=== PATIENT | female | born 1970 | race African-American/Black ===

== ENCOUNTER 2017-01-10 07:29 | Day surgery (SDC) | payer OTHER, MEDICAID ==
--- NOTE | 2017-01-04 13:10 | HP ---
PREOPERATIVE HISTORY AND PHYSICAL: DATE OF SURGERY/ADMISSION: 01/10/17 DATE OF OFFICE VISIT/ENCOUNTER: 01/02/17 ATTENDING SURGEON: Bina Branham MD PROCEDURE: Left elbow ulnar nerve decompression. CHIEF COMPLAINT: Left arm pain and numbness. HISTORY OF PRESENT ILLNESS: This is a 46-year-old female who complains of numbness in her left hand for about 4 years. She recently had a nerve conduction study done by Dr. Hinojosa, which shows an ulnar neuropathy with compression of the ulnar nerve at the elbow. She does not recall any injury and she has not had any treatment for this. She reports her fingers are numb all of the time. Her thumb is not involved. She was recently diagnosed with COPD and is being treated for that. After evaluation and recommendations by Dr. Branham, she has consented to proceed with surgical intervention for this problem in the form of left elbow ulnar nerve decompression. PAST MEDICAL HISTORY: Significant for: 1. COPD. 2. Anxiety/panic attacks. 3. Asthma. 4. Back pain. PAST SURGICAL HISTORY: 1. Hysterectomy. 2. Breast surgery secondary to infection. 3. Right ankle surgery. CURRENT MEDICATIONS: 1. Albuterol sulfate. 2. Clonazepam 2 tabs b.i.d. 3. Cyclobenzaprine HCL 10 mg t.i.d. p.r.n. spasm. 4. Fluticasone propionate 2 sprays each nostril daily p.r.n. 5. Ibuprofen 600 mg t.i.d. p.r.n. 6. Ipratropium bromide 2 sprays each nostril 4 times a day p.r.n. 7. Naprosyn 500 mg 1 tab b.i.d. p.r.n. 8. Ventolin HFA inhaler 2 puffs 4 times a day p.r.n. ALLERGIES: ERYTHROMYCIN, KEFLEX, LATEX, TAPE, and ZOLOFT. FAMILY MEDICAL HISTORY: Noncontributory. SOCIAL HISTORY: The patient is currently unemployed. She typically works in daycare. She is a smoker. Reports smoking less than a half a pack per day for the past 15 years. She denies recreational drug use, although she admits to smoking pot regularly in the past and she does admit to alcohol use on occasion. REVIEW OF SYSTEMS: General: Negative for fevers, chills, or night sweats. No known anesthesia problems in the past. HEENT: Negative for headache, lightheadedness, or syncopal episodes. Integumentary: Negative for abrasions, lesions, or open wounds. Cardiothoracic: Negative for chest pain, palpitations , or edema. Negative for hypertension. Pulmonary: Positive for COPD. Positive for asthma. Positive for shortness of breath with exertion. GI: Negative for nausea, vomiting, diarrhea, constipation, or GERD. : Negative for nocturia, urinary frequency, urgency, history of UTIs, or kidney problems. Musculoskeletal: Positive for current complaint. Positive for intermittent back pain. Neurological: Positive for panic attack/anxiety. Negative for paresthesias, numbness, history of seizure, stroke, or epilepsy. Endocrine: Positive for goiter. Negative for diabetes. Hematologic: Negative for easy bruising, anemia, excessive bleeding, or history of DVT. Infectious Disease: Negative for history of MRSA, hepatitis C, or HIV. PHYSICAL EXAMINATION GENERAL: Well-developed, well-nourished 46-year-old female in no acute distress. VITAL SIGNS: Height 5 feet 9 inches, weight 161 pounds, pulse rate 88, blood pressure 108/58. HEENT: Normocephalic, atraumatic. Pupils are equal, round, and reactive to light and accommodation. Extraocular movements are intact. Throat is clear. NECK: Supple. No palpable lymph nodes. PULMONARY: Lungs are clear to auscultation bilaterally. No wheezes, rales, or rhonchi. CARDIOTHORACIC: Regular rate and rhythm. S1, S2. No murmurs, rubs, or gallops. No edema. ABDOMEN: Positive bowel sounds, soft, nontender. NEUROLOGICAL: Alert and oriented x3. Cranial nerves II through XII are intact. Sensation is intact to light touch. MUSCULOSKELETAL: On exam of the left upper extremity, there is no interosseous wasting, but there is marked weakness with finger abduction compared to the right hand. She has decreased sensation in the ulnar nerve distribution compared to the right upper extremity. She can fully flex and extend her fingers. She has normal wrist and elbow motion and a negative Tinel sign of the ulnar nerve at the elbow, but is reporting that she cannot feel anything with this test. Skin is intact. IMAGING STUDIES: Nerve conduction study done by Dr. Hinojosa approximately a month ago shows ulnar nerve compression at the left elbow. IMPRESSION: Left ulnar neuropathy at the elbow. PLAN: The patient is scheduled to undergo a left ulnar nerve decompression at the elbow with Dr. Branham on 01/10/17. She will return to the office in 10 to 14 days postop for followup and suture removal. A prescription for [place] was e- scribed to the patient's pharmacy for postoperative pain management. GAYLA VELASQUEZ [id number]/CPS #: [id number] SIA
[~2017-01-10 07:29] MED LIST: Buffered Lidocaine 1% SYR 3ML* 3 ML/SYR SYRINGE INTRADERM ONE
[2017-01-10] MEDS ORDERED: Clindamycin 900 MG IVPREMIX(* 900 MG/50 ML SDV IV ONE (07:39)
[2017-01-10] MEDS ORDERED: Midazolam* 1 MG/ML 2 ML VIAL (2 MG) ONE (08:56)
[2017-01-10] MEDS ORDERED: fentaNYL* 50 MCG/ML 2 ML VIAL (100 MCG VIAL) ONE (08:56)
[2017-01-10] MEDS ORDERED: Bupivacaine 0.5% SDV PF* 30 ML VIAL ONE (09:44)
[2017-01-10] MEDS ORDERED: Propofol* 10 MG/ML 20 ML BTL IV PUSH ONE (09:52)
[2017-01-10] MEDS ORDERED: HYDROcodone/ACETAMIN 5-325 MG* 1 TAB ONE (10:50)
[2017-01-10 11:22] VITALS: BP 116/86
--- NOTE | 2017-01-11 02:59 | OP ---
DATE OF OPERATION: 01/10/17 - [facility] DATE OF : 72 SURGEON: Bina Branham MD STEAM CONDITIONER OPERATOR: GAYLA Duran ANESTHESIOLOGIST: Charlie Tamayo MD ANESTHESIA: Local MAC. PRE-OP DIAGNOSIS: Ulnar nerve compression of the left elbow. POST-OP DIAGNOSIS: Ulnar nerve compression of the left elbow. OPERATIVE PROCEDURE: Left ulnar nerve decompression at the elbow. ESTIMATED BLOOD LOSS: Zero. TOURNIQUET TIME: About 25 minutes. INDICATIONS FOR PROCEDURE: Jaye is a 46-year-old female with numbness and tingling in the ulnar nerve distribution of her left hand. Nerve conduction study shows ulnar neuropathy at the elbow. She presents for ulnar nerve decompression at the left elbow. DESCRIPTION OF PROCEDURE: The patient was brought to the operating room, was given a sedation anesthetic and local infiltration of 10 cc of 1% plain lidocaine on the medial aspect of her left elbow. Skin of her left upper extremity was prepped and draped in the usual sterile fashion. The upper extremity was exsanguinated and the tourniquet elevated to 250 mmHg. A curvilinear incision was made centered between the medial epicondyle and the tip of the olecranon process. We dissected through the subcutaneous tissue down to the ulnar nerve proximal to the cubital tunnel. It was carefully dissected out proximally through the cubital tunnel and distally into the FCU muscle. The superficial and deep fascia of the FCU muscle was divided. The most compression was at the cubital tunnel. Proximal to that, the nerve was bulbus. The medial intermuscular septum was then divided because it had a very sharp edge. The wound was copiously irrigated with saline. The subcutaneous tissue was closed with 2-0 Polysorb and the skin with skin enzo. The wound was dressed with Xeroform, 4x4, Webril, and an Jayjay wrap. The patient tolerated the procedure well, was brought to the recovery room in good condition. [id number]/[facility] #: [id number] [facility] CENT[facility]ira
== END 2017-01-10 11:45 | disposition home or self-care (01) ==
LOC: OREAST 07:29
PROVIDERS: ATTEND Orthopaedic Surgery
DX: G56.22 Lesion of ulnar nerve, left upper limb (principal); R01.1 Cardiac murmur, unspecified; I25.2 Old myocardial infarction; J44.9 Chronic obstructive pulmonary disease, unspecified; F17.200 Nicotine dependence, unspecified, uncomplicated; Z85.3 Personal history of malignant neoplasm of breast
CPT/HCPCS: J2250; J2704; J3010

== ENCOUNTER 2017-06-06 09:15 | Emergency (ER) | payer OTHER ==
[2017-06-06] MEDS ORDERED: Ketorolac INJ* 30 MG/ML 1 ML VIAL IV ONE (10:17)
[2017-06-06] MEDS ORDERED: HYDROmorphone* 1 MG/ML 1 ML SYR IV ONE (10:17)
[2017-06-06] MEDS ORDERED: Ondansetron INJ* 2 MG/ML VIAL IV ONE (10:17)
[2017-06-06 11:07] LABS: Hematocrit 45 % (35-47); Hemoglobin 15.2 g/dl (12.0-16.0); Mean Corpuscular HGB Conc 34 g/dl (31-36); Mean Corpuscular Hemoglobin 33 pg (27-31); Mean Corpuscular Volume 97 fL (80-97); Mean Platelet Volume 8 um3 (7.4-10.4); Red Blood Count 4.65 10^6/ul (4.0-5.4); Red Cell Distribution Width 13 % (10.5-15); White Blood Count 6.9 10^3/ul (3.5-10.8)
[2017-06-06 11:22] LABS: Albumin 3.9 g/dL (3.2-5.2); BUN/Creatinine Ratio 15.2 (8-20); C Reactive Protein 1.81 mg/L (< 5.00); Calcium 9.6 mg/dL (8.6-10.3); EGFR African American 124.6 (>60); EGFR Non-African American 96.8 (>60); Globulin 3.4 g/dL (2-4); Potassium 3.6 mmol/L (3.5-5.0); Total Bilirubin 0.4 mg/dL (0.2-1.0); Total Protein 7.3 g/dL (6.4-8.9)
[2017-06-06 12:21] VITALS: BP 148/91
--- NOTE | 2017-06-06 15:07 | ED ---
I, Oh,Soohleola, scribed for Bill Moses MD on 06/06/17 at 1011 . Lower Extremity - HPI Summary HPI Summary: This 46 y/o female presents to ED for acute on chronic right hip pain since yesterday. PMHx includes Libral tear. Pt states that she has been following up with Sports medicine and had cortisone shot 4 days ago. Pt became concerned when pain persisted after the cortisone shot, and called Dr. Lizarraga yesterday. She decided to bring herself to ED today when she had trouble tolerating the pain. Ambulation and position makes pain worse. - History of Current Complaint Chief Complaint: EDGeneral Stated Complaint: HIP/CHEST PAIN Time Seen by Provider: 06/06/17 09:46 Hx Obtained From: Patient, Medical Records Mechanism Of Injury: Unknown Pain Intensity: 10 Pain Scale Used: 0-10 Numeric Timing: Constant Location: Is Discrete @ - right hip Character Of Pain: Dull Associated Signs And Symptoms: Positive: Negative Aggravating Factor(s): Standing, Ambulation, Movement Alleviating Factor(s): Rest - Allergies/Home Medications Allergies/Adverse Reactions: Allergies Allergy/AdvReac Type Severity Reaction Status Date / Time Latex Allergy Severe Rash Verified 05/09/17 12:48 Chlorine Allergy Mild Itching Verified 05/09/17 12:48 Cephalexin [From Keflex] Allergy Rash Verified 05/09/17 12:48 Erythromycin Allergy Hives Verified 05/09/17 12:48 Sertraline [From Zoloft] Allergy Itching Verified 05/09/17 12:48 PMH/Surg Hx/FS Hx/Imm Hx Endocrine/Hematology History: Reports: Hx Thyroid Disease - goiter Denies: Hx Diabetes, Hx Anemia Cardiovascular History: Reports: Hx Cardiac Arrest - age21, Hx Hypertension Denies: Hx Pacemaker/ICD Respiratory History: Reports: Hx Asthma - albuterol inhaler GI History: Reports: Hx Gastroesophageal Reflux Disease Denies: Other GI Disorders History: Denies: Hx Dialysis, Hx Kidney Infection, Hx Kidney Stones, Hx Renal Disease , Other Problems/Disorders Musculoskeletal History: Reports: Hx Arthritis - RIGHT ANKLE Sensory History: Reports: Hx Contacts or Glasses - GLASSES Denies: Hx Hearing Aid Opthamlomology History: Reports: Hx Contacts or Glasses - GLASSES Neurological History: Reports: Hx Headaches, Hx Migraine, Hx Seizures - until age 12, grew out of Psychiatric History: Reports: Hx Anxiety - meds, Hx Depression Denies: Hx Panic Disorder - Cancer History Cancer Type, Location and Year: ATYPICAL CELL - Hx Chemotherapy: No Hx Radiation Therapy: No - Surgical History Surgery Procedure, Year, and Place: HYSTERECTOMY 09/2012,. Right ankle repair, . BONE REMOVAL FROM NASAL SEPTUM. BREAST - Rt NIPPLE PARTIAL REMOVAL & Lt NIPPLE COMPLETE REMOVAL DUE TO ATYPICAL CELLS Hx Anesthesia Reactions: Yes - patient stated she " " on operating table, was brought back Infectious Disease History: No Infectious Disease History: Denies: Traveled Outside the [place] in Last 30 Days - Family History Known Family History: Positive: Other - Social History Alcohol Use: Weekly Hx Substance Use: Yes Substance Use Type: Reports: Marijuana Substance Use Comment - Amount & Last Used: couple times a week Hx Tobacco Use: Yes Smoking Status (MU): Heavy Every Day Tobacco Smoker Type: Cigarettes Review of Systems Negative: Fever Positive: Other - right hip pain All Other Systems Reviewed And Are Negative: Yes Physical Exam - Summary Physical Exam Summary: Well-appearing, moderate to severe pain distress Warm, dry, color reflects adequate perfusion. Injection site noted at right lateral hip, which appears clean. Nml head/face Nml eyes Nml ENT Supple, non-tender CTA, breath sound present RRR Abd soft, non-tender, Bowel sounds + Nml musculoskeletal. Due to pt's pain distress ROM is not examined. Nml neuro Nml psychiatric, affect/mood appropriate Triage Information Reviewed: Yes Vital Signs On Initial Exam: Initial Vitals Temp Pulse Resp BP Pulse Ox 98 F 90 15 168/117 100 06/06/17 09:27 06/06/17 09:27 06/06/17 09:27 06/06/17 09:27 06/06/17 09:27 Vital Signs Reviewed: Yes - [place] Coma Scale Coma Scale Total: 15 Diagnostics - Vital Signs Vital Signs Temp Pulse Resp BP Pulse Ox 06/06/17 09:27 98 F 90 15 168/117 100 - Laboratory Lab Results: Lab Results 06/06/17 06/06/17 Range/Units 10:56 10:56 WBC 6.9 (3.5-10.8) 10^3/ul RBC 4.65 (4.0-5.4) 10^6/ul Hgb 15.2 (12.0-16.0) g/dl Hct 45 (35-47) % MCV 97 (80-97) fL MCH 33 H (27-31) pg MCHC 34 (31-36) g/dl RDW 13 (10.5-15) % Plt Count 255 (150-450) 10^3/ul MPV 8 (7.4-10.4) um3 Neut % (Auto) 45.1 (38-83) % Lymph % (Auto) 45.4 (25-47) % [place] % (Auto) 7.8 (1-9) % Eos % (Auto) 0.8 (0-6) % Baso % (Auto) 0.9 (0-2) % Absolute Neuts (auto) 3.1 (1.5-7.7) 10^3/ul Absolute Lymphs (auto) 3.1 (1.0-4.8) 10^3/ul Absolute Monos (auto) 0.5 (0-0.8) 10^3/ul Absolute Eos (auto) 0.1 (0-0.6) 10^3/ul Absolute Basos (auto) 0.1 (0-0.2) 10^3/ul Absolute Nucleated RBC 0.02 10^3/ul Nucleated RBC % 0.3 Sodium 135 (133-145) mmol/L Potassium 3.6 (3.5-5.0) mmol/L Chloride 103 (101-111) mmol/L Carbon Dioxide 24 (22-32) mmol/L Anion Gap 8 (2-11) mmol/L BUN 10 (6-24) mg/dL Creatinine 0.66 (0.51-0.95) mg/dL Est GFR ( Amer) 124.6 (>60) Est GFR (Non-Af Amer) 96.8 (>60) BUN/Creatinine Ratio 15.2 (8-20) Glucose 92 (70-100) mg/dL Calcium 9.6 (8.6-10.3) mg/dL Total Bilirubin 0.40 (0.2-1.0) mg/dL AST 20 (13-39) U/L ALT 25 (7-52) U/L Alkaline Phosphatase 76 (34-104) U/L C-Reactive Protein 1.81 (< 5.00) mg/L Total Protein 7.3 (6.4-8.9) g/dL Albumin 3.9 (3.2-5.2) g/dL Globulin 3.4 (2-4) g/dL Albumin/Globulin Ratio 1.1 (1-3) Result Diagrams: 06/06/17 10:56 06/06/17 10:56 Lab Statement: Any lab studies that have been ordered have been reviewed, and results considered in the medical decision making process. - EKG 0950 Cardiac Rate: NL - 81 bpm EKG Rhythm: Sinus Rhythm Re-Evaluation - Re-Evaluation First Eval Re-Evaluation Time: 11:38 Comment: Pt is reevaluated after IV Toradol and Dilaudid. Lower Extremity Course/Dx - Course Course Of Treatment: Ms. Pruett has severe pain in her right hip about a week after getting an intraarticular injection. There was no evidence for infection and she was treated symptomatically to F/U with her orthopedist. - Diagnoses Provider Diagnoses: Right hip pain Discharge - Discharge Plan Condition: Stable Disposition: HOME Prescriptions: HYDROcodone/ACETAMIN 5-325 MG* [[place] 5-325 TAB*] 1 tab PO Q6H PRN #20 tab MDD 4 PRN Reason: Pain Patient Education Materials: Hydrocodone/Acetaminophen (By mouth), Hip Pain (ED ) Referrals: Melo Hayes MD [Primary Care Provider] - 2 Days The documentation as recorded by the Hector landry Soohyun accurately reflects the service I personally performed and the decisions made by me, Bill Moses MD.
== END 2017-06-06 12:20 | disposition home or self-care (01) ==
LOC: ED 09:15
DX: M25.551 Pain in right hip (principal); E04.9 Nontoxic goiter, unspecified; Z86.74 Personal history of sudden cardiac arrest; I10 Essential (primary) hypertension; K21.9 Gastro-esophageal reflux disease without esophagitis; F41.9 Anxiety disorder, unspecified; F17.210 Nicotine dependence, cigarettes, uncomplicated
CPT/HCPCS: 36415; 80053; 85025; 86140; 93005; 96374; 96375; 99282; J1170; J1885; J2405

== ENCOUNTER 2017-06-17 21:52 | Emergency (ER) | payer OTHER ==
[2017-06-17] MEDS ORDERED: Ketorolac INJ* 30 MG/ML 1 ML VIAL IV ONE (22:36)
[2017-06-17] MEDS ORDERED: NS 0.9% 1000 ML* 1,000 ML IV ONE (22:36)
[2017-06-17] MEDS ORDERED: Ondansetron INJ* 2 MG/ML VIAL IV ONE (22:36)
[2017-06-17] MEDS ORDERED: methylPREDNISolone 125 MG* 2 ML VIAL IV ONE (22:36)
[2017-06-17] MEDS ORDERED: Famotidine IV* 10 MG/ML 2 ML (20 mg) IV SLOW PU ONE (22:37)
[2017-06-17 23:33] LABS: Hematocrit 43 % (35-47); Hemoglobin 14.7 g/dl (12.0-16.0); Mean Corpuscular HGB Conc 34 g/dl (31-36); Mean Corpuscular Hemoglobin 32 pg (27-31); Mean Corpuscular Volume 96 fL (80-97); Mean Platelet Volume 8 um3 (7.4-10.4); Red Blood Count 4.52 10^6/ul (4.0-5.4); Red Cell Distribution Width 13 % (10.5-15); White Blood Count 5.1 10^3/ul (3.5-10.8)
[2017-06-17 23:44] LABS: Albumin 4.3 g/dL (3.2-5.2); BUN/Creatinine Ratio 13.5 (8-20); Calcium 9.3 mg/dL (8.6-10.3); EGFR African American 109.1 (>60); EGFR Non-African American 84.9 (>60); Globulin 3.3 g/dL (2-4); Potassium 3.7 mmol/L (3.5-5.0); Total Bilirubin 0.5 mg/dL (0.2-1.0); Total Protein 7.6 g/dL (6.4-8.9)
--- NOTE | 2017-06-18 01:05 | ED ---
I, Oh,Solidya, scribed for Birgit Hughes MD on 06/17/17 at 2238 . Bite Injury/Animal - HPI Summary HPI Summary: THis 46 y/o female presents to ED for insect bite on left neck about 1.5 minutes ago. Pt states that she "heard some weird noise". Positive chills, "searing burning pain", and chest tightness. Pt is unsure what she was bitten by. PMHx includes HTN. Epipen was administered SURFACE MINER. Pt is smoker, MJ user, and drinker. - History of Current Complaint Chief Complaint: EDAllergicReaction Stated Complaint: STUNG BY BEE Time Seen by Provider: 06/17/17 22:05 Hx Obtained From: Patient, Medical Records Onset of Injury: Happened hours ago, Still Present Type of Bite: Wild Animal - insect Pain Intensity: 7 Pain Scale Used: 0-10 Numeric Aggravating Factor(s): Nothing Alleviating Factor(s): Nothing - Allergies/Home Medications Allergies/Adverse Reactions: Allergies Allergy/AdvReac Type Severity Reaction Status Date / Time Latex Allergy Severe Rash Verified 05/09/17 12:48 Chlorine Allergy Mild Itching Verified 05/09/17 12:48 Cephalexin [From Keflex] Allergy Rash Verified 05/09/17 12:48 Erythromycin Allergy Hives Verified 05/09/17 12:48 Sertraline [From Zoloft] Allergy Itching Verified 05/09/17 12:48 PMH/Surg Hx/FS Hx/Imm Hx Endocrine/Hematology History: Reports: Hx Thyroid Disease - goiter Denies: Hx Diabetes, Hx Anemia Cardiovascular History: Reports: Hx Cardiac Arrest - age21, Hx Hypertension Denies: Hx Pacemaker/ICD Respiratory History: Reports: Hx Asthma - albuterol inhaler GI History: Reports: Hx Gastroesophageal Reflux Disease Denies: Other GI Disorders History: Denies: Hx Dialysis, Hx Kidney Infection, Hx Kidney Stones, Hx Renal Disease , Other Problems/Disorders Musculoskeletal History: Reports: Hx Arthritis - RIGHT ANKLE Sensory History: Reports: Hx Contacts or Glasses - GLASSES Denies: Hx Hearing Aid Opthamlomology History: Reports: Hx Contacts or Glasses - GLASSES Neurological History: Reports: Hx Headaches, Hx Migraine, Hx Seizures - until age 12, grew out of Psychiatric History: Reports: Hx Anxiety - meds, Hx Depression Denies: Hx Panic Disorder - Cancer History Cancer Type, Location and Year: ATYPICAL CELL - Hx Chemotherapy: No Hx Radiation Therapy: No - Surgical History Surgery Procedure, Year, and Place: HYSTERECTOMY 09/2012,. Right ankle repair, . BONE REMOVAL FROM NASAL SEPTUM. BREAST - Rt NIPPLE PARTIAL REMOVAL & Lt NIPPLE COMPLETE REMOVAL DUE TO ATYPICAL CELLS Hx Anesthesia Reactions: Yes - patient stated she " " on operating table, was brought back Infectious Disease History: No Infectious Disease History: Denies: Traveled Outside the [place] in Last 30 Days - Family History Known Family History: Positive: Other - breast CA - Social History Alcohol Use: Weekly Hx Substance Use: Yes Substance Use Type: Reports: Marijuana Substance Use Comment - Amount & Last Used: couple times a week Hx Tobacco Use: Yes Smoking Status (MU): Heavy Every Day Tobacco Smoker Type: Cigarettes Review of Systems Positive: Chills. Negative: Fever Positive: Other - neck pain Positive: Other - insect bite on left lateral neck All Other Systems Reviewed And Are Negative: Yes Physical Exam Triage Information Reviewed: Yes Vital Signs On Initial Exam: Initial Vitals Temp Pulse Resp BP Pulse Ox 97 F 126 20 154/91 98 06/17/17 21:56 06/17/17 21:56 06/17/17 21:56 06/17/17 21:56 06/17/17 21:56 Vital Signs Reviewed: Yes Appearance: Positive: Well-Appearing, No Pain Distress Skin: Negative: Erythema @ Head/Face: Positive: Normal Head/Face Inspection Eyes: Positive: EOMI, NEAL Neck: Positive: Other: - Mild tenderness at left lateral neck. No bite noted. Respiratory/Lung Sounds: Positive: Clear to Auscultation, Breath Sounds Present. Negative: Rales, Rhonchi Cardiovascular: Positive: RRR. Negative: Murmur, Rub, Other - gallops Musculoskeletal: Positive: Strength/ROM Intact Neurological: Positive: Sensory/Motor Intact, Alert, Oriented to Person Place, Time Psychiatric: Positive: Affect/Mood Appropriate AVPU Assessment: Alert Diagnostics - Vital Signs Vital Signs Temp Pulse Resp BP Pulse Ox 06/17/17 22:12 97.7 F 116 27 130/115 96 06/17/17 21:56 97 F 126 20 154/91 98 - Laboratory Lab Results: Lab Results 06/17/17 06/17/17 Range/Units 23:00 23:00 WBC 5.1 (3.5-10.8) 10^3/ul RBC 4.52 (4.0-5.4) 10^6/ul Hgb 14.7 (12.0-16.0) g/dl Hct 43 (35-47) % MCV 96 (80-97) fL MCH 32 H (27-31) pg MCHC 34 (31-36) g/dl RDW 13 (10.5-15) % Plt Count 223 (150-450) 10^3/ul MPV 8 (7.4-10.4) um3 Neut % (Auto) 36.9 L (38-83) % Lymph % (Auto) 52.6 H (25-47) % [place] % (Auto) 7.8 (1-9) % Eos % (Auto) 1.3 (0-6) % Baso % (Auto) 1.4 (0-2) % Absolute Neuts (auto) 1.9 (1.5-7.7) 10^3/ul Absolute Lymphs (auto) 2.7 (1.0-4.8) 10^3/ul Absolute Monos (auto) 0.4 (0-0.8) 10^3/ul Absolute Eos (auto) 0.1 (0-0.6) 10^3/ul Absolute Basos (auto) 0.1 (0-0.2) 10^3/ul Absolute Nucleated RBC 0 10^3/ul Nucleated RBC % 0.1 Sodium 135 (133-145) mmol/L Potassium 3.7 (3.5-5.0) mmol/L Chloride 104 (101-111) mmol/L Carbon Dioxide 25 (22-32) mmol/L Anion Gap 6 (2-11) mmol/L BUN 10 (6-24) mg/dL Creatinine 0.74 (0.51-0.95) mg/dL Est GFR ( Amer) 109.1 (>60) Est GFR (Non-Af Amer) 84.9 (>60) BUN/Creatinine Ratio 13.5 (8-20) Glucose 86 (70-100) mg/dL Calcium 9.3 (8.6-10.3) mg/dL Total Bilirubin 0.50 (0.2-1.0) mg/dL AST 18 (13-39) U/L ALT 24 (7-52) U/L Alkaline Phosphatase 73 (34-104) U/L Total Protein 7.6 (6.4-8.9) g/dL Albumin 4.3 (3.2-5.2) g/dL Globulin 3.3 (2-4) g/dL Albumin/Globulin Ratio 1.3 (1-3) Beta HCG, Quant 4.81 mIU/mL Result Diagrams: 06/17/17 23:00 06/17/17 23:00 Lab Statement: Any lab studies that have been ordered have been reviewed, and results considered in the medical decision making process. - Radiology CXR Xray Interpretation: No Acute Changes - See EMR Radiology Interpretation Completed By: ED Physician - EKG 2 Cardiac Rate: Tachycardia - 13 bpm EKG Rhythm: Sinus Tachycardia EKG Comparison: No Significant Change - 06/06/2017 Bite Injury Course/Dx - Course Assessment/Plan: 46 yo female likely bit by a bee on the left side of her neck used her own epi pen feeling better now ok to go home - Diagnoses Provider Diagnosis: Allergic reaction Discharge - Discharge Plan Condition: Stable Disposition: HOME Prescriptions: Epinephrine [Epipen 2-Nilesh] 0.3 mg IM ONCE PRN #1 inj PRN Reason: Allergy Symptoms predniSONE TAB* [Deltasone TAB*] 50 mg PO DAILY #3 tab Patient Education Materials: Prednisone (By mouth), General Allergic Reaction ( ED) Referrals: Melo Hayes MD [Primary Care Provider] - 2 Days The documentation as recorded by the Hector landry Soohyun accurately reflects the service I personally performed and the decisions made by me, Birgit Hughes MD.
[2017-06-18 01:24] VITALS: BP 104/69
--- NOTE | 2017-06-18 11:32 | RAD ---
Indication: Shortness of breath. Bee sting. Tobacco use. Comparison: September 04, [address] September 14, 2012 chest radiograph Technique: Upright AP 2256 hours Report: Decreased lung volumes for this patient compared with the prior exam with associated mild crowding of the pulmonary markings and minimal linear LEFT basilar subsegmental atelectasis. Negative for pleural effusion or pneumothorax. The heart, pulmonary vasculature, and mediastinal contours are unremarkable. IMPRESSION: Aside from mildly decreased lung volumes for this patient compared with prior exams with associated mild subsegmental atelectasis the examination is normal.
== END 2017-06-18 01:24 | disposition home or self-care (01) ==
LOC: ED 21:52
DX: S10.96XA Insect bite of unspecified part of neck, initial encounter (principal); R07.89 Other chest pain; W57.XXXA Bitten or stung by nonvenomous insect and other nonvenomous arthropods, initial encounter; Y93.9 Activity, unspecified; Y92.9 Unspecified place or not applicable; R00.0 Tachycardia, unspecified; Z32.02 Encounter for pregnancy test, result negative; E04.9 Nontoxic goiter, unspecified; I10 Essential (primary) hypertension; J45.909 Unspecified asthma, uncomplicated; K21.9 Gastro-esophageal reflux disease without esophagitis; F41.9 Anxiety disorder, unspecified; Z90.710 Acquired absence of both cervix and uterus; Z86.74 Personal history of sudden cardiac arrest; Z88.1 Allergy status to other antibiotic agents; Z88.8 Allergy status to other drugs, medicaments and biological substances; Z91.040 Latex allergy status; F12.90 Cannabis use, unspecified, uncomplicated; F17.210 Nicotine dependence, cigarettes, uncomplicated
CPT/HCPCS: 36415; 71010; 80053; 84702; 85025; 93005; 96361; 96374; 96375; 99283; J1885; J2405; J2930

== ENCOUNTER 2017-06-30 12:39 | Emergency (ER) | payer OTHER ==
[2017-06-30] MEDS ORDERED: Ketorolac INJ* 60 MG/2 ML VIAL IM ONE (15:40)
[2017-06-30] MEDS ORDERED: Cyclobenzaprine TAB* 10 MG PO ONE (15:41)
[2017-06-30 16:43] VITALS: BP 129/95
--- NOTE | 2017-07-02 21:57 | ED ---
Lower Extremity - HPI Summary HPI Summary: 46 female presents to ED with complaints of right chronic hip pain that has been ongoing for years due to her labrum tear. Patient states pain has been worsening and she is out of medication for the past week. She has only been taking last script as needed and stretched it to make it last longer. Denies any new recent trauma or injury. Patient follows with orthopedics and has an appointment in a couple of weeks. In the midst of finding a new PCP and establishing with pain clinic. Patient denies any radiation of pain, numbness and tingling. Has been taking ibuprofen without significant relief. Pain makes weight bearing and walking almost unbearable. No other complaints. - History of Current Complaint Chief Complaint: EDExtremityLower Stated Complaint: RT HIP PAIN Time Seen by Provider: 06/30/17 15:30 Hx Obtained From: Patient Mechanism Of Injury: Unknown - injury from years ago, labrum tear Onset/Duration: Worse Since Severity Initially: Mild Severity Currently: Moderate Pain Intensity: 4 Pain Scale Used: 0-10 Numeric Timing: Constant Location: Is Discrete @ - right hip Character Of Pain: Sharp, Aching Associated Signs And Symptoms: Positive: Negative Aggravating Factor(s): Standing, Ambulation, Weight Bearing Alleviating Factor(s): Rest, Ice Able to Bear Weight: Yes - with pain - Allergies/Home Medications Allergies/Adverse Reactions: Allergies Allergy/AdvReac Type Severity Reaction Status Date / Time Latex Allergy Severe Rash Verified 06/30/17 12:55 Chlorine Allergy Mild Itching Verified 06/30/17 12:55 Cephalexin [From Keflex] Allergy Rash Verified 06/30/17 12:55 Erythromycin Allergy Hives Verified 06/30/17 12:55 Sertraline [From Zoloft] Allergy Itching Verified 06/30/17 12:55 PMH/Surg Hx/FS Hx/Imm Hx Endocrine/Hematology History: Reports: Hx Thyroid Disease - goiter Denies: Hx Diabetes, Hx Anemia Cardiovascular History: Reports: Hx Cardiac Arrest - age21, Hx Hypertension Denies: Hx Pacemaker/ICD Respiratory History: Reports: Hx Asthma - albuterol inhaler GI History: Reports: Hx Gastroesophageal Reflux Disease Denies: Other GI Disorders History: Denies: Hx Dialysis, Hx Kidney Infection, Hx Kidney Stones, Hx Renal Disease , Other Problems/Disorders Musculoskeletal History: Reports: Hx Arthritis - RIGHT ANKLE Sensory History: Reports: Hx Contacts or Glasses - GLASSES Denies: Hx Hearing Aid Opthamlomology History: Reports: Hx Contacts or Glasses - GLASSES Neurological History: Reports: Hx Headaches, Hx Migraine, Hx Seizures - until age 12, grew out of Psychiatric History: Reports: Hx Anxiety - meds, Hx Depression Denies: Hx Panic Disorder - Cancer History Cancer Type, Location and Year: ATYPICAL CELL - Hx Chemotherapy: No Hx Radiation Therapy: No - Surgical History Surgery Procedure, Year, and Place: HYSTERECTOMY 09/2012,. Right ankle repair, . BONE REMOVAL FROM NASAL SEPTUM. BREAST - Rt NIPPLE PARTIAL REMOVAL & Lt NIPPLE COMPLETE REMOVAL DUE TO ATYPICAL CELLS Hx Anesthesia Reactions: Yes - patient stated she " " on operating table, was brought back Infectious Disease History: No Infectious Disease History: Denies: Traveled Outside the [place] in Last 30 Days - Family History Known Family History: Positive: Unknown, Other - breast CA - Social History Alcohol Use: Weekly Hx Substance Use: Yes Substance Use Type: Reports: Marijuana Substance Use Comment - Amount & Last Used: couple times a week Hx Tobacco Use: Yes Smoking Status (MU): Heavy Every Day Tobacco Smoker Type: Cigarettes Review of Systems Constitutional: Negative Cardiovascular: Negative Respiratory: Negative Positive: Arthralgia, Myalgia, Decreased ROM - right hip Skin: Negative Neurological: Negative All Other Systems Reviewed And Are Negative: Yes Physical Exam Triage Information Reviewed: Yes Vital Signs On Initial Exam: Initial Vitals Temp Pulse Resp BP Pulse Ox 97.7 F 90 20 125/89 100 06/30/17 12:55 06/30/17 12:55 06/30/17 12:55 06/30/17 12:55 06/30/17 12:55 Vital Signs Reviewed: Yes Appearance: Positive: Well-Appearing, Well-Nourished, Pain Distress - moderate with movement of right leg/hip Skin: Positive: Warm, Skin Color Reflects Adequate Perfusion, Dry. Negative: Cold, Numb, Cyanosis @, Pale, Erythema @ Head/Face: Positive: Normal Head/Face Inspection Eyes: Positive: Conjunctiva Clear ENT: Positive: Hearing grossly normal Neck: Positive: Supple, Nontender Respiratory/Lung Sounds: Positive: Clear to Auscultation, Breath Sounds Present. Negative: Rales, Rhonchi, Wheezes Cardiovascular: Positive: Normal, RRR, Pulses are Symmetrical in both Upper and Lower Extremities - 2+ pedal b/l. Negative: Murmur, Rub Abdomen Description: Positive: Nontender, Soft Bowel Sounds: Positive: Present Musculoskeletal: Positive: Normal, Strength/ROM Intact Neurological: Positive: Normal, Sensory/Motor Intact - sensation intact, Alert, Oriented to Person Place, Time, CN Intact II-III, Reflexes Intact, NV Bundle Intact Distally, Abnormal Gait - limping due to pain of right hip, favoring left side Psychiatric: Positive: Affect/Mood Appropriate Diagnostics - Vital Signs Vital Signs Temp Pulse Resp BP Pulse Ox 06/30/17 16:42 98.4 F 86 12 129/95 06/30/17 14:48 98.4 F 86 14 123/98 100 06/30/17 12:55 97.7 F 90 20 125/89 100 - Laboratory Lab Statement: Any lab studies that have been ordered have been reviewed, and results considered in the medical decision making process. Lower Extremity Course/Dx - Course Course Of Treatment: due to patient having chronic hip pain, without new injury or trauma, no x-ray obtained. known to have a right labrum tear by Dr Correa orthopeist who is familiar with patient. checked Istop ref# [id number] in both [facility] and [place]. Was clear. Will be given few days supply of norco to help with pain. stated we will no longer be able to give her the medication here as she has a chronic injury that needs further evaluation and possibly surgery. Also pain clinic appointment. Follow up ortho. Aware of worsening signs and symptoms. Rest and ice/heat. Muscle relaxer. - Diagnoses Differential Diagnosis/HQI/PQRI: Positive: Contusion, Fracture (Closed), Sprain , Strain Provider Diagnoses: Chronic pain of right hip, Labral tear of right hip joint Discharge - Discharge Plan Condition: Stable Disposition: HOME Prescriptions: Cyclobenzaprine TAB* [Flexeril 10 MG TAB*] 10 mg PO BEDTIME #10 tab HYDROcodone/ACETAMIN 5-325 MG* [[place] 5-325 TAB*] 1 tab PO Q6H PRN #15 tab MDD 2 PRN Reason: Pain Patient Education Materials: Hip Pain (ED) Referrals: Jaspreet Correa MD [Medical Doctor] - Melo Hayes MD [Primary Care Provider] - Additional Instructions: Take prescribed medication to help with pain and inflammation. Follow up with ortho and pain clinic. Rest and avoid physical activity.
== END 2017-06-30 16:43 | disposition home or self-care (01) ==
LOC: ED 12:39
DX: S73.101A Unspecified sprain of right hip, initial encounter (principal); M25.551 Pain in right hip; X58.XXXA Exposure to other specified factors, initial encounter; Y93.9 Activity, unspecified; Y92.9 Unspecified place or not applicable
CPT/HCPCS: 96372; 99282; A9270-GY; J1885

== ENCOUNTER 2017-07-24 11:02 | Emergency (ER) | payer OTHER ==
[2017-07-24 11:17] VITALS: BP 111/81
--- NOTE | 2017-07-24 11:34 | ED ---
Lower Extremity - HPI Summary HPI Summary: 46 female presents to ED with complaints of right chronic hip pain that has been ongoing for years due to her labrum tear. Patient states pain has been worsening and she is out of medication for the past 5 days. She has only been taking last script as needed and stretched it to make it last longer. Took 600mg ibuprofen around 5:30am with little relief. Was also taking Flexeril that helped with her pain, but does not have anymore. Denies any new recent trauma or injury. Patient follows with orthopedics and has an a scheduled surgical repair with Dr Ham. Appointment with pain clinic this Monday at 9:15am. Patient denies any radiation of pain, numbness and tingling. Did have some overuse with climbing over and around her cough over the weekend dealing with he kittens. H Pain makes weight bearing and walking almost unbearable. No other complaints. - History of Current Complaint Chief Complaint: EDHipPelvisInjury Stated Complaint: RT HIP PAIN Time Seen by Provider: 07/24/17 11:10 Hx Obtained From: Patient Mechanism Of Injury: Twisted Onset/Duration: Weeks - on going Severity Initially: Mild Severity Currently: Moderate Pain Intensity: 5 Pain Scale Used: 0-10 Numeric Timing: Constant Location: Is Discrete @ - right hip Character Of Pain: Sharp, Aching Associated Signs And Symptoms: Positive: Negative Aggravating Factor(s): Standing, Ambulation, Weight Bearing Alleviating Factor(s): Rest Able to Bear Weight: Yes - with pain - Allergies/Home Medications Allergies/Adverse Reactions: Allergies Allergy/AdvReac Type Severity Reaction Status Date / Time Latex Allergy Severe Rash Verified 06/30/17 12:55 Chlorine Allergy Mild Itching Verified 06/30/17 12:55 Cephalexin [From Keflex] Allergy Rash Verified 06/30/17 12:55 Erythromycin Allergy Hives Verified 06/30/17 12:55 Sertraline [From Zoloft] Allergy Itching Verified 06/30/17 12:55 PMH/Surg Hx/FS Hx/Imm Hx Endocrine/Hematology History: Reports: Hx Thyroid Disease - goiter Denies: Hx Diabetes, Hx Anemia Cardiovascular History: Reports: Hx Cardiac Arrest - age21, Hx Hypertension Denies: Hx Pacemaker/ICD Respiratory History: Reports: Hx Asthma - albuterol inhaler GI History: Reports: Hx Gastroesophageal Reflux Disease Denies: Other GI Disorders History: Denies: Hx Dialysis, Hx Kidney Infection, Hx Kidney Stones, Hx Renal Disease , Other Problems/Disorders Musculoskeletal History: Reports: Hx Arthritis - RIGHT ANKLE Sensory History: Reports: Hx Contacts or Glasses - GLASSES Denies: Hx Hearing Aid Opthamlomology History: Reports: Hx Contacts or Glasses - GLASSES Neurological History: Reports: Hx Headaches, Hx Migraine, Hx Seizures - until age 12, grew out of Psychiatric History: Reports: Hx Anxiety - meds, Hx Depression Denies: Hx Panic Disorder - Cancer History Cancer Type, Location and Year: ATYPICAL CELL - Hx Chemotherapy: No Hx Radiation Therapy: No - Surgical History Surgery Procedure, Year, and Place: HYSTERECTOMY 09/2012,. Right ankle repair, . BONE REMOVAL FROM NASAL SEPTUM. BREAST - Rt NIPPLE PARTIAL REMOVAL & Lt NIPPLE COMPLETE REMOVAL DUE TO ATYPICAL CELLS Hx Anesthesia Reactions: Yes - patient stated she " " on operating table, was brought back - Immunization History Immunizations Up to Date: Yes Infectious Disease History: No Infectious Disease History: Denies: Traveled Outside the [place] in Last 30 Days - Family History Known Family History: Positive: Unknown, Other - breast [place] - Social History Alcohol Use: Weekly Hx Substance Use: Yes Substance Use Type: Reports: Marijuana Substance Use Comment - Amount & Last Used: couple times a week Hx Tobacco Use: Yes Smoking Status (MU): Heavy Every Day Tobacco Smoker Type: Cigarettes Review of Systems Constitutional: Negative Cardiovascular: Negative Respiratory: Negative Gastrointestinal: Negative Positive: Arthralgia, Myalgia, Decreased ROM - right hip Skin: Negative Neurological: Negative All Other Systems Reviewed And Are Negative: Yes Physical Exam Triage Information Reviewed: Yes Vital Signs On Initial Exam: Initial Vitals Temp Pulse Resp BP Pulse Ox 97.9 F 95 20 134/103 100 07/24/17 11:04 07/24/17 11:04 07/24/17 11:04 07/24/17 11:04 07/24/17 11:04 Vital Signs Reviewed: Yes Appearance: Positive: Well-Appearing, Well-Nourished, Pain Distress - moderate, holding right hip laying on left side Skin: Positive: Warm, Skin Color Reflects Adequate Perfusion, Dry, Other - no ecchymosis or edema. Negative: Numb, Cyanosis @, Mass @, Erythema @ Head/Face: Positive: Normal Head/Face Inspection Eyes: Positive: Conjunctiva Clear ENT: Positive: Pharynx normal Neck: Positive: Supple, Nontender Respiratory/Lung Sounds: Positive: Clear to Auscultation, Breath Sounds Present. Negative: Decreased Breath Sounds, Rales, Rhonchi, Wheezes Cardiovascular: Positive: Normal, RRR, Pulses are Symmetrical in both Upper and Lower Extremities - 2+ pedal. Negative: Murmur, Rub Musculoskeletal: Positive: Limited @ - right lower extremity due to painin right hip, Pain @ - right hip with movement, Other - rest of MSK exam normal. no crepitus step off or obvious deformity, equal length LE b/l. Negative: Interruption @, Abnormal @, Edema Left, Edema Right Neurological: Positive: Normal, Sensory/Motor Intact - sensation, Alert, Oriented to Person Place, Time, CN Intact II-III, Reflexes Intact, NV Bundle Intact Distally, Abnormal Gait - favoring left side, limping Psychiatric: Positive: Affect/Mood Appropriate Diagnostics - Vital Signs Vital Signs Temp Pulse Resp BP Pulse Ox 07/24/17 11:14 97.3 F 97 20 111/81 100 07/24/17 11:04 97.9 F 95 20 134/103 100 - Laboratory Lab Statement: Any lab studies that have been ordered have been reviewed, and results considered in the medical decision making process. Lower Extremity Course/Dx - Course Course Of Treatment: due to patient having chronic hip pain, without new injury or trauma, no x-ray obtained. known to have a right labrum tear with surgical repair in place with Dr Ham. checked Istop ref#[id number] in both [facility] and [place] and [place]. Was clear. Last dose was given by me, 06/30 only #15 for 7 day supply. Will be given 3 days supply of norco to help with pain until seen by pain clinic on Monday07/28/17 at 9:15a. stated we will no longer be able to give her the medication here as she has a chronic injury that needs further evaluation and to work with ortho/pain clinic. Supplement with ibuprofen and given muscle relaxer. Aware of worsening signs and symptoms. Rest and ice/heat. - Diagnoses Differential Diagnosis/HQI/PQRI: Positive: Arthritis, Dislocation, Sprain, Strain, Other - labral tear, right hip Provider Diagnoses: Chronic right hip pain Discharge - Discharge Plan Condition: Stable Disposition: HOME Prescriptions: Cyclobenzaprine TAB* [Flexeril 10 MG TAB*] 10 mg PO BEDTIME PRN #5 tab PRN Reason: Spasms HYDROcodone/ACETAMIN 5-325 MG* [[place] 5-325 TAB*] 1 tab PO Q6H PRN #6 tab MDD 2 PRN Reason: Pain Patient Education Materials: Hip Pain (ED) Referrals: Karo La MD [Primary Care Provider] - Additional Instructions: Take medication as prescribed, only as needed. do not drive while taking these medications. Supplement with ibuprofen in between doses. Rest and apply warm compresses. Be sure to go to pain clinic on Monday at 9:15am. Follow up with Ortho.
[2017-07-24] MEDS ORDERED: Ibuprofen TAB* 600 MG PO ONE (11:43)
== END 2017-07-24 11:52 | disposition home or self-care (01) ==
LOC: ED 11:02
DX: M25.551 Pain in right hip (principal); G89.29 Other chronic pain; F17.210 Nicotine dependence, cigarettes, uncomplicated; E04.9 Nontoxic goiter, unspecified; Z86.74 Personal history of sudden cardiac arrest; I10 Essential (primary) hypertension; K21.9 Gastro-esophageal reflux disease without esophagitis; J45.909 Unspecified asthma, uncomplicated
CPT/HCPCS: 99282; A9270-GY

== ENCOUNTER 2017-10-20 05:56 | Day surgery (SDC) | payer OTHER ==
--- NOTE | 2017-09-26 21:55 | HP ---
HISTORY AND PHYSICAL: DATE OF ADMISSION/SURGERY: 10/04/17 DATE OF HISTORY AND PHYSICAL: 09/26/17 SURGEON: Dr. Ham. * (DICTATED BY GAYLA CASTANEDA) PROCEDURE: Right hip arthroscopic labral repair, osteoplasty. CHIEF COMPLAINT: Right hip pain. HISTORY OF PRESENT ILLNESS: Jaye is a 46-year-old female who presents to the clinic for a right hip pain for 3 years. She had previously seen Dr. Correa for right hip, who did x-rays and MRI that revealed anterior labral tear. She also has spondylosis of the lumbar spine. She has a constant lateral aching pain in her hip that radiates into her groin. It is intermittent and sharp shooting pain that occurs with walking, standing or sitting too long. She has difficulty sleeping with the pain and this occurs when walking, standing or sitting too long as well. She has tried physical therapy for back and hip, this was helpful for a few months and then the pain returns. She did receive an intraarticular injection in the right hip, which helped completely relieve the pain for about 2 hours. She does report some numbness and tingling in her right leg and the pain causes her leg to occasionally give out. She also had pain in her lower back. In the past, patient has used massage to help with the pain in the back. She also has be seen by the Pain Clinic to assist with pain management. She denies any fevers or chills and is doing well otherwise. As she has already done physical therapy and had injection, we previously had discussed surgical treatment. Today, she is here for H and P to get set up for that surgery. PAST MEDICAL HISTORY: Significant for: 1. COPD. 2. Anxiety. 3. Muscle spasms. 4. Chronic back pain. PAST SURGICAL HISTORY: 1. Left elbow surgery. 2. Cyst excision of her breast x2. 3. Right ankle surgery. 4. Hysterectomy. MEDICATIONS: 1. Albuterol. 2. EpiPen as directed. 3. Fluticasone propionate 15 mcg per action 2 sprays each nostril daily as needed. 4. Ipratropium bromide 0.06% 2 sprays each nostril 4 days times a day as needed. 5. Ventolin. 6. Cyclobenzaprine HCL 10 mg as prescribed. 7. Hydrocodone. ALLERGIES: Include KEFLEX, ZOLOFT, ERYTHROMYCIN, LATEX, TAPE, TYLENOL and BEES. FAMILY MEDICAL HISTORY: Mother with cancer and CT at less than 50 years. Father with diabetes, hypertension, and CT. SOCIAL HISTORY: Smoking 5 cigarettes a day for the last 29-plus years. Alcohol , she drinks about a 12 packs per week. She also endorses smoking marijuana and denies any other illicit drug abuse. REVIEW OF SYSTEMS: Significant for night sweats attributed to menopause, pedal swelling on her right side, which is the side of her previous ankle surgery. She is not able to walk a flight of stairs due to her hip pain, shortness of breath with exertion, back pain and current complaint as above in HPI. She reports she did have seizures as a child, but these have not recurred and anxiety. She does have a thyroid goiter as well. Otherwise, she denies, fevers , chills, anesthesia problems, headache, lightheadedness, fainting, changes in vision, wounds, rashes, chest pain, palpitations, wheezing, cough, nausea, vomiting, diarrhea, constipation, abdominal pain, dysuria, urinary urgency, stroke, depression, numbness, tingling, diabetes, anemia, history of DVT or PE, easy bruising or excessive bleeding. Also, denies any history of MRSA, hepatitis C, or HIV. PHYSICAL EXAMINATION GENERAL: She is a well-developed, well-nourished female in no acute distress. Alert and oriented x3 with appropriate mood and affect. VITAL SIGNS: Height 66 inches, weight 150 pounds, blood pressure 126/76, respirations 20, pain level 2/10, BMI 24.2. HEENT: Normocephalic, atraumatic. Extraocular movements intact bilaterally. NECK: Supple. No palpable cervical lymph nodes. Thyroid is smooth and nontender. PULMONARY: Lungs clear to auscultation bilaterally with no wheezes, rhonchi, or rales. CARDIAC: Regular rate and rhythm. No murmurs, rubs, or gallops appreciated. Light amount of right pedal edema, nonpitting. ABDOMEN: Soft and nontender. NEURO: Sensation is intact to light touch. MUSCULOSKELETAL: Gait, antalgic gait favoring the right side, appropriate balance and coordination. Right lower extremity, skin is intact. No warmth or erythema. Tenderness to palpation over the anterior aspect of the hip. Flexion of the hip to 80 degrees with pain. FADIR and JEM, 30 degrees of internal rotation and 7 degrees of external rotation with hip pain. The calf is soft and nontender. 2+ posterior tibialis pulse. Intact sensation. Intact to light touch distally. Left lower extremity, skin is intact, no warmth or erythema and nontender to palpation. Full range of motion, pain free of the hip , 2+ posterior tibialis pulse. Sensation intact to light touch distally. DIAGNOSTIC STUDIES: Multiple view x-rays and MRI of the right hip revealed a cam lesion and an anterior labral tear. IMPRESSION: This is a 46-year-old female who presents to the clinic for right hip pain due to a labral tear. She has discussed surgery with Dr. Ham including an right hip arthroscopic labral repair and she responded well to her previous injection. She has also failed physical therapy. She discussed risk of surgery including traction, numbness, risk of anesthesia, injury to nerves and blood vessels and surrounding structures, infection, bleeding, and all questions were answered with the patient. PLAN: Jaye is to undergo right hip arthroscopic labral repair, osteoplasty with Dr. Ham on 10/04/17. She will followup in clinic 7 to 10 days postop for suture removal. Prescription for pain medication as well as Naprosyn were sent to patient's pharmacy of record. I-STOP was checked prior to sending the prescription. GAYLA CASTANEDA [id number]/[facility] #: [id number] SIA
[~2017-10-20 05:56] MED LIST changes: +Buffered Lidocaine 0.9% SYRIN* 5 ML/SYR SYRINGE INTRADERM ONE; -Buffered Lidocaine 1% SYR 3ML* 3 ML/SYR SYRINGE INTRADERM ONE
[2017-10-20] MEDS ORDERED: Clindamycin 900 MG IVPREMIX(* 900 MG/50 ML SDV IV ONE (06:05)
[2017-10-20] MEDS ORDERED: Buffered Lidocaine 0.9% SYRIN* 5 ML/SYR SYRINGE ONE (06:05)
[2017-10-20] MEDS ORDERED: fentaNYL* 50 MCG/ML 2 ML VIAL (100 MCG VIAL) ONE ×3 (07:20→09:03)
[2017-10-20] MEDS ORDERED: Midazolam* 1 MG/ML 2 ML VIAL (2 MG) ONE (07:20)
[2017-10-20] MEDS ORDERED: Propofol* 10 MG/ML 20 ML BTL IV PUSH ONE (07:20)
[2017-10-20] MEDS ORDERED: Atracurium* 10 MG/ML 10 ML VIAL ONE (07:20)
[2017-10-20] MEDS ORDERED: Ketorolac INJ* 30 MG/ML 1 ML VIAL ONE ×2 (07:55→09:43)
[2017-10-20] MEDS ORDERED: Bupivacaine 0.25% SDV* 30 ML ONE (07:56)
[2017-10-20] MEDS ORDERED: Dexamethasone IV* 4 MG/ML 1 ML (4 MG) ONE (07:58)
[2017-10-20] MEDS ORDERED: Ondansetron INJ* 2 MG/ML VIAL ONE (09:43)
[2017-10-20] MEDS ORDERED: oxyCODONE TAB* 5 MG TAB PO PRN (10:04)
[2017-10-20] MEDS ORDERED: fentaNYL* 50 MCG/ML 2 ML VIAL (100 MCG VIAL) IV PRN (10:04)
[2017-10-20] MEDS ORDERED: Levalbuterol 1.25MG/0.5ML NEB INH PRN (10:04)
[2017-10-20] MEDS ORDERED: HYDROmorphone INJ* 1 MG/ML CARPUJECT SYRINGE IV PRN (10:04)
[2017-10-20] MEDS ORDERED: HYDROcodone/ACETAMIN 5-325 MG* 1 TAB PO PRN (10:04)
[2017-10-20] MEDS ORDERED: DiMENhydriNATE IV* 50 MG/ML VIAL IV PUSH PRN (10:04)
[2017-10-20] MEDS ORDERED: Ondansetron INJ* 2 MG/ML VIAL IV PRN (10:04)
[2017-10-20] MEDS ORDERED: HYDROcodone/ACETAMIN 5-325 MG* 1 TAB ONE (10:31)
--- NOTE | 2017-10-20 10:33 | RAD ---
HISTORY: Right hip labral repair, arthroscopy, right hip pain COMPARISONS: May 17, 2017 TECHNIQUE: Fluoroscopy was provided for a surgical procedure. Total fluoroscopy time is: 42 seconds FINDINGS: Spot images of the straight a needle and arthroscopy trochars overlying the hip IMPRESSION: FLUOROSCOPY WAS PROVIDED FOR A SURGICAL PROCEDURE CPT II Codes: 6045F
[2017-10-20 10:55] VITALS: BP 137/95
--- NOTE | 2017-10-20 14:28 | OP ---
CC: PCP, Karo La MD * DATE OF OPERATION: 10/20/17 - [facility] DATE OF : 72 SURGEON: Susy Ham MD INSURANCE OFFICE MANAGER: GAYLA Luciano. An scheduling assistant was needed for the entirety of the case to help with positioning, retraction, and utilized throughout all portions of the case. ANESTHESIOLOGIST: Dr. King. ANESTHESIA: General. 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 OPERATIVE PROCEDURE: Right hip arthroscopy with: 1. Labral debridement. 2. Pincer acetabular osteoplasty. 3. CAM femoral osteoplasty. COMPLICATIONS: None. ESTIMATED BLOOD LOSS: Minimal. TRACTION TIME: 48 minutes. OPERATIVE FINDINGS: The traction provided good access to the hip joint without evidence of underlying hyperlaxity. Arthroscopic exam showed labral fraying and a labral tear that had fraying but was too diminutive and was not good enough quality to hold a repair. The rest of the labrum was of normal size. There was a wave sign including some mild cartilage delamination at labral tear which was at the 10 o'clock to 2 o'clock position with a minimal amount of damage to the acetabular cartilage. Otherwise, cartilage of femoral head was intact and there was evidence of capsular irritation. DESCRIPTION OF PROCEDURE: The patient was greeted in the preoperative area by the attending surgeon. Correct extremity was marked and consent was confirmed. The patient was then brought back to the operating suite where she was placed in supine position on the operating table. She then underwent general anesthesia under endotracheal intubation after which she was placed in well- padded boot. I placed a [employer] hip distraction system with a well- padded perineal post. Gross traction was then applied to balance pelvis on the nonoperative leg. The operative extremity was placed in a dynamic leg amin with neutral adduction. Slight flexion and gentle internal rotation allowed to bring the femoral neck parallel to the floor to facilitate atraumatic access. The right arm was then secured over the patient. The right hip was prepped and draped in usual sterile fashion beginning with chlorhexidine soap, scrub, and alcohol wipe. After a miniature surgical pause, gross traction was applied to the operative extremity. Under sterile condition, an 18-gauge spinal needle was introduced to the joint to break the acetabular seal. Once this was done, fine traction was applied until the joint was distracted to about 1.5 cm, which was visualized and confirmed with a large C-arm fluoroscopy. Traction was then released. The hip was prepped and draped with a final prep with ChloraPrep. After appropriate surgical pause indicating side, site, procedure, and administration of antibiotics, traction was then brought back up to allow for about 1.5 cm of distraction. The anterior peritrochanteric portal was then accessed using a long spinal needle, which was confirmed fluoroscopically. The nitinol wire was then used to help facilitate the cannula placement and then the arthroscope into the joint atraumatically. Once the mini-anterior portal was made in similar fashion using spinal needle for localization, the trocar was advanced into the joint. A 70-degrees scope was then used to identify and visualize the hip including femoral head, which had minimal changes. There was a wave sign on the acetabulum at the level of the labral tear, which was at 10 o 'clock to 2 o'clock position. The labrum was frayed and had obvious tearing, but it was not of good quality. There is concern it may not be repaired. There was a pincer deformity that was apparent. There was contusion to the labrum at the level of the labral tear. The arthroscope was then switched to the mini portal just to make sure that no portal was penetrating the labrum. The irrigation pump was set at 40 mmHg and provided pressure throughout the entirety of the case. Once the positions were confirmed, a capsulotomy was then done using a [place] blade. The first compartment synovectomy was carried out using a full radius curved shaver as well as electrocautery to maintain hemostasis and address the excess synovium that was visible and allowed access to the joint and reflect the capsular bag. The capsular reflection was then cleared back from the rim. Acetabulum was exposed to the region of the acetabular rim prominence with a mild nonfocal retroversion, a 5 mm round scotty was then used to perform the rim trimming. Once this was done, the labrum was also palpated, it was determined that this could not be reattached and therefore, the labrum was then debrided using deandra. Care was taken to try not to totally detach the labrum because of repair was not possible. Once the rim trimming was complete and this was confirmed arthroscopically as well as fluoroscopically and based on preoperative templating, the remainder of the labrum was debrided back. Some of the acetabular debridement was carried back to the level of subspine region to remove any AIIS bony impingement. Crossover sign was eliminated. Once the intraarticular work was complete, the traction was taken down in the hip and this was confirmed both arthroscopically and fluoroscopically. With the leg in extension, the CAM osteoplasty began, there was evidence of small CAM. The preoperative templating was used as a guide and femoral neck osteoplasty was carried out using a 5 mm round scotty. Resection was carried out from superior to inferior lateral and medially. This was carefully monitored and confirmed using the C-arm to ensure elimination of any femoral-sided impingement. Femoral head and neck angle was then normalized. Care was taken not to prevent iatrogenic injury to the lateral vessels post reduction. Dynamic testing was done under direct visualization. The C-arm was used to ensure that all bony impingement was removed. The hip was taken through range of motion and resection was done extension and flexion, internal and external rotation as well as neutral rotation. Final dynamic exam was done to make sure that the CAM lesion had been eliminated. At this point, meticulous hemostasis was obtained. The spinal needle was inserted into the joint under arthroscopic visualization and 3 mL injectable saline and Toradol were injected into the hip joint. The skin incisions were copiously irrigated and closed in layered fashion with 2-0 Vicryl and 3-0 nylon. Portals were then injected with 0.25% Marcaine for postoperative pain control. Sterile dressings were applied along with a Cryo/Cuff and thigh-high MONROE stockings which were applied to both extremities. She was awoken from anesthesia and transferred to PACU in stable condition. POSTOPERATIVE PLAN: She will be discharged home the same day, given a prescription for MS Contin and Percocet; MS Contin for 5 days, Percocet 1 to 2 tablets every 4 to 6 hours, Naprosyn 500 mg p.o. b.i.d. to be taken every day for 30 days, Ambien 10 mg for 5 days. She will begin gentle range of motion in preoperative area. We will have her placed with physical therapy which she starts on Monday, and she will be 50% partial weightbearing with crutches for the first 2 weeks postop. I will see her back in 10 to 14 days with x-rays of the hip including a Peacock lateral at 45 degrees. [id number]/[facility] #: [id number] MTDD
== END 2017-10-20 11:29 | disposition home or self-care (01) ==
LOC: OR 05:56
PROVIDERS: ATTEND Orthopaedic Surgery
DX: M24.851 Other specific joint derangements of right hip, not elsewhere classified (principal); J44.9 Chronic obstructive pulmonary disease, unspecified; F41.9 Anxiety disorder, unspecified; M62.838 Other muscle spasm; M54.9 Dorsalgia, unspecified; F17.210 Nicotine dependence, cigarettes, uncomplicated
CPT/HCPCS: 76000; J1100; J1885; J2250; J2405; J2704; J3010